=== PATIENT | male | born 1960 | race Caucasian/White ===

== ENCOUNTER 2017-04-08 05:35 | Inpatient (IN) | payer MEDICAID ==
[2017-04-08 05:47] VITALS: BMI 39.1
--- NOTE | 2017-04-08 06:07 | ED PDOC ---
Addendum entered and electronically signed by Malika Jane DO 04/08/17 08:27: Medical Decision Making Medical Decision Making: Dr. Hidalgo notified, asked to have admission to hospitalist team. Addendum entered and electronically signed by Malika Jane DO 04/08/17 07:44: Medical Decision Making Medical Decision Making: Patient endorsed to myself, still pending lab work before disposition. Lab work back, will place call to Dr. Hidalgo and Eric re: admission for TIA Original Note: Arrival/HPI - General Historian: Patient, Family - History of Present Illness Time/Duration: 4-6 hours Symptom Course: Unchanged Activities at Onset: Rest, Light Context: Home, Work <CRISTOBAL SHERIDAN - Last Filed: 04/08/17 06:53> <Malika Jane - Last Filed: 04/08/17 08:27> <Ky Demarco - Last Filed: 04/08/17 19:34> - General Chief Complaint: Weakness/Neurological Deficit Time Seen by Provider: 04/08/17 05:36 - History of Present Illness Narrative History of Present Illness (Text): 04/08/17 06:07 Mr. Will is a 56 year old male with a past medical history significant for NIDDM, HTN, and HLD who presents to the [facility] with a chief complaint of right sided weakness since last night at 2130. Patient is accompanied by his son, who helped to provide HPI information. Patient states that last night his right leg and arm felt "funny" but patient didn't think much of this and went to bed. Then this morning when he awoke around 0400 he noticed his right leg and right arm were numb and noticeably weaker than his left side. 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 Patients son then called the ambulance out of precaution. Patient denies fever, chills, weight loss, headache, changes in his vision/hearing, dizziness, seizure , dysphagia, chest pain, palpitations, SOB, cough, wheezing, abdominal pain, N/V , diarrhea, constipation, burning with urination, fecal/urinary incontinence, hematuria, neck pain, back pain, or any rash. (CRISTOBAL SHERIDAN) Past Medical History - Provider Review Nursing Documentation Reviewed: Yes - Travel History Have you recently traveled outside [place] w/in the past 3 mons?: No - Past History Past History: Non-Contributing - Infectious Disease Hx of Infectious Diseases: None - Tetanus Immunization Tetanus Immunization: Unknown - Cardiac Hx Cardiac Disorders: Yes Hx Hypertension: Yes - Pulmonary Hx Respiratory Disorders: No - Neurological Hx Neurological Disorder: No - HEENT Hx HEENT Disorder: No - Renal Hx Renal Disorder: No - Endocrine/Metabolic Hx Endocrine Disorders: Yes Hx Diabetes Mellitus Type 2: Yes - Hematological/Oncological Hx Blood Disorders: No - Integumentary Hx Dermatological Disorder: No - Musculoskeletal/Rheumatological Hx Musculoskeletal Disorders: No - Gastrointestinal Hx Gastrointestinal Disorders: Yes Hx Gastroesophageal Reflux: Yes - Genitourinary/Gynecological Hx Genitourinary Disorders: No - Psychiatric Hx Psychophysiologic Disorder: No Hx Substance Use: No <CRISTOBAL SHERIDAN - Last Filed: 04/08/17 06:53> Family/Social History - Physician Review Nursing Documentation Reviewed: Yes Family/Social History: Unknown Family HX Smoking Status: Former Smoker Hx Alcohol Use: Yes Hx Substance Use: No <CRISTOBAL SHERIDAN - Last Filed: 04/08/17 06:53> Allergies/Home Meds <CRISTOBAL SHERIDAN - Last Filed: 04/08/17 06:53> <Malika Jane - Last Filed: 04/08/17 08:27> <Ky Demarco - Last Filed: 04/08/17 19:34> Allergies/Adverse Reactions: Allergies No Known Allergies Allergy (Verified 08/28/15 18:18) Home Medications: Home Meds Medication Instructions Recorded Confirmed Cyanocobalamin (Vitamin B-12) 1,000 mcg PO DAILY 04/08/17 04/08/17 [Vitamin B-12] Glimepiride [amaRYL] 2 mg PO BID 04/08/17 04/08/17 GlipiZIDE [Glucotrol] 5 mg PO BID 04/08/17 04/08/17 Lisinopril/Hydrochlorothiazide 1 each PO DAILY 04/08/17 04/08/17 [Zestoretic 20-25 mg Tablet] MetFORMIN [glucOPHAGE] 1,000 mg PO BID 04/08/17 04/08/17 Omeprazole 20 mg PO DAILY 04/08/17 04/08/17 Review of Systems - Physician Review All systems were reviewed & negative as marked: Yes - Review of Systems Constitutional: Normal. absent: Weight Change, Fevers, Night Sweats Eyes: Normal. absent: Vision Changes ENT: Normal. absent: Hearing Changes Respiratory: Normal. absent: SOB, Cough, Wheezing Cardiovascular: Normal. absent: Chest Pain, Palpitations, Syncope Gastrointestinal: Normal, Other (denies fecal incontinence). absent: Abdominal Pain, Constipation, Diarrhea, Nausea, Vomiting Genitourinary Male: Normal, Other (denies urinary incontinence). absent: Dysuria, Hematuria Musculoskeletal: Normal. absent: Back Pain, Neck Pain Skin: Normal. absent: Rash Neurological: Focal Weakness, Gait Changes. absent: Normal, Headache, Dizziness , Speech Changes, Seizure Endocrine: Normal Hemo/Lymphatic: Normal Psychiatric: Normal <CRISTOBAL SHERIDAN - Last Filed: 04/08/17 06:53> Physical Exam Vital Signs Reviewed: Yes Temperature: Afebrile Blood Pressure: Normal Pulse: Regular Respiratory Rate: Normal Appearance: Positive for: Well-Appearing, Non-Toxic, Comfortable Pain Distress: None Mental Status: Positive for: Alert and Oriented X 3 - Systems Exam Head: Present: Atraumatic, Normocephalic Pupils: Present: PERRL Extroacular Muscles: Present: EOMI Conjunctiva: Present: Normal Mouth: Present: Moist Mucous Membranes Pharnyx: Present: Normal. No: ERYTHEMA, EXUDATE, TONSILS ENLARGED Nose (External): Present: Atraumatic Nose (Internal): Present: Normal Inspection. No: No Active Bleeding, Rhinorrhea Neck: Present: Normal Range of Motion, Trachea Midline. No: Meningeal Signs, MIDLINE TENDERNESS, Paraspinal Tenderness, JVD, Lymphadenopathy Respiratory/Chest: Present: Clear to Auscultation, Good Air Exchange. No: Respiratory Distress, Accessory Muscle Use, Wheezes, Decreased Breath Sounds, Rales, Retracting, Rhonchi, Tachypneic, Tender to Palpation Cardiovascular: Present: Regular Rate and Rhythm, Normal S1, S2, Peripheal Pulses Present. No: Murmurs, Irregular Rhythm, Tachycardic, Bradycardic Abdomen: Present: Normal Bowel Sounds. No: Tenderness, Distention, Peritoneal Signs Back: Present: Normal Inspection. No: CVA Tenderness, Midline Tenderness, Paraspinal Tenderness, Pain with Leg Raise Upper Extremity: Present: Normal Inspection, Normal ROM, NORMAL PULSES, Neurovascularly Intact, Capillary Refill < 2s. No: Cyanosis, Edema Lower Extremity: Present: Normal Inspection, NORMAL PULSES, Normal ROM, Neurovascularly Intact, Capillary Refill < 2 s. No: Edema, CALF TENDERNESS Neurological: Present: GCS=15, CN II-XII Intact, Speech Normal, Motor Func Grossly Intact, Normal Sensory Function Skin: Present: Warm, Dry, Normal Color. No: Rashes Lymphatic: No: Cervical Adenopathy Psychiatric: Present: Alert, Oriented x 3, Normal Insight, Normal Concentration <CRISTOBAL SHERIDAN - Last Filed: 04/08/17 06:53> Vital Signs Temp Pulse Resp BP Pulse Ox 04/08/17 18:00 90 04/08/17 16:54 98.3 F 89 18 128/87 04/08/17 16:16 98 F 99 H 18 131/82 96 04/08/17 14:00 86 12 131/82 98 04/08/17 13:13 89 18 128/87 96 04/08/17 12:44 98.2 F 04/08/17 10:38 78 18 122/89 100 04/08/17 07:47 75 17 130/44 L 99 04/08/17 05:45 98.3 F 85 16 123/78 100 Medical Decision Making - RAD Interpretation Staffing Operations Manager: Radiologist - EKG Interpretation Interpreted by ED Physician: Yes Type: 12 lead EKG - Transfer of Care Patient signed out to Myra Jane Pending Labs:: CBC, CMP, aPTT, PT/INR <CRISTOBAL SHERIDAN - Last Filed: 04/08/17 06:53> <Malika Jane - Last Filed: 04/08/17 08:27> <Ky Demarco - Last Filed: 04/08/17 19:34> ED Course and Treatment: 04/08/17 06:19 Impression: 56 year old male with a past medical history significant for NIDDM, HTN, and HLD who presents to the [facility] with a chief complaint of right sided weakness since he woke up this morning Plan: -CBC, CMP, PT/INR, aPTT -EKG -CT head w/o contrast -Reassess and disposition Prior Visits: All reports and results from previous visits reviewed. 02/2016: Patient was seen and evaluated for pneumonia. 04/08/17 06:54 Patient was signed out to Dr. Jane, including HPI, radiology results and EKG results. Awaiting labs for pending disposition. (CRISTOBAL SHERIDAN) pt seen and examined with resident agree with plan and management, case endorsed dr ortiz ([facility]) - Lab Interpretations Lab Results: 04/08/17 06:58 04/08/17 06:58 Lab Results 04/08/17 06:58: Sodium 141, Potassium 4.1, Chloride 101, Carbon Dioxide 24, Anion Gap 20, BUN 11, Creatinine 0.8, Est GFR ( Amer) > 60, Est GFR (Non- Af Amer) > 60, Random Glucose 202 H, Calcium 9.7, Total Bilirubin 0.5, AST 64 H , ALT 71 H, Alkaline Phosphatase 91, Total Protein 7.8, Albumin 4.6, Globulin 3.2, Albumin/Globulin Ratio 1.4 04/08/17 06:58: PT 11.1, INR 1.03, APTT 26.9 04/08/17 06:58: WBC 6.2 D, RBC 4.67, Hgb 12.9 L, Hct 39.4 L, MCV 84.4, MCH 27.6 , MCHC 32.7, RDW 13.3, Plt Count 183, MPV 13.2 H, Gran % 57.4, Lymph % (Auto) 32.0, [place] % (Auto) 6.1 H, Eos % (Auto) 4.2, Baso % (Auto) 0.3, Gran # 3.56, Lymph # 2.0, [place] # 0.4, Eos # 0.3, Baso # 0.02 - RAD Interpretation Radiology Orders: 04/08/17 06:05 HEAD W/O CONTRAST [CT] Stat Negative for acute hemorrhage or infarct (CRISTOBAL SHERIDAN) - EKG Interpretation EKG Interpretation (Text): 04/08/17 06:36 NSR at 76, normal intervals, no ST-T segment changes, no T wave abnormalities ( CRISTOBAL SHERIDAN) - Medication Orders Current Medication Orders: Aspirin (Aspirin Chewable) 81 mg PO DAILY [facility] Last Admin: 04/08/17 10:20 Dose: Atorvastatin Calcium (Lipitor) 20 mg PO DIN [facility] Last Admin: 04/08/17 17:28 Dose: 20 mg Heparin Sodium (Porcine) (Heparin) 5,000 units SC Q12 [facility] PRN Reason: Protocol Last Admin: 04/08/17 10:32 Dose: 5,000 units Subcutaneous Administrations Document 04/08/17 10:32 MR (Rec: 04/08/17 10:33 MR [id number]) Injection Site MAR Injection Site Left Abdomen Charges for Administration # of Subcutaneous Administrations 1 Insulin Human Regular (Humulin R Med) 0 units SC ACHS YUE PRN Reason: Protocol Last Admin: 04/08/17 17:27 Dose: 3 units MAR Blood Glucose Document 04/08/17 17:27 LMN (Rec: 04/08/17 17:28 LMN [id number]) Blood Glucose Finger Stick Blood Glucose (70-120) 240 Subcutaneous Administrations Document 04/08/17 17:27 LMN (Rec: 04/08/17 17:28 LMN [id number]) Injection Site MAR Injection Site Left Abdomen Charges for Administration # of Subcutaneous Administrations 1 Pantoprazole Sodium (Protonix Ec Tab) 40 mg PO 0600 YUE Discontinued Medications Aspirin (Aspirin Chewable) 81 mg PO STAT STA Stop: 04/08/17 08:15 Last Admin: 04/08/17 09:17 Dose: 81 mg Pneumococcal Polyvalent Vaccine (Pneumovax 23 Vaccine) 0.5 ml IM .ONCE ONE Stop: 04/08/17 17:09 NIHSS Scale (Points) Time Performed: 06:22 - How Severe is the Stoke Baseline Level of Consciousness: 0=Alert LOC to Questions: 0=Both comments correct LOC to commands: 0=Obeys both correctly Best Gaze: 0=Normal Visual: 0=No visual loss Facial: 0=Normal Motor Arm - Left: 0=No drift Motor Arm - Right: 0=No drift Motor Leg - Left: 0=No drift Motor Leg - Right: 0=No drift Limb Ataxia: 0=Absent Sensory: 0=Normal Best Language: 0=No aphasia Dysarthia: 0=Normal articulation Extinction & Inattention (Neglect): 0=Normal, no object Score: 0 Risk Level: No Stroke Risk <CRISTOBAL SHERIDAN - Last Filed: 04/08/17 06:53> rTPA Inclusion/Exclusion - Refusal of Treatment Patient Refused Treatment: No - Inclusion Criteria for Altepase Patient is 18 years or Older: Yes The Clinical Diagnosis of Ischemic Stroke That is Causing a Potentially Disabling Neurological Deficit: No Time of Onset is Well Established to be Less Than 270 Minute Before Treatment Would Begin: No Risk/Benefit Discussed With Patient/Family Member Present: No <CRISTOBAL SHERIDAN - Last Filed: 04/08/17 06:53> - Refusal of Treatment Patient Refused Treatment: No - Inclusion Criteria for Altepase Patient is 18 years or Older: Yes The Clinical Diagnosis of Ischemic Stroke That is Causing a Potentially Disabling Neurological Deficit: No Time of Onset is Well Established to be Less Than 270 Minute Before Treatment Would Begin: No Risk/Benefit Discussed With Patient/Family Member Present: Yes - Exclusion Criteria for Altepase Uncontrolled Hypertension at Time of Treatment (Systolic BP above 185 or Diastolic BP above 110 mmHg): No Active Internal Bleeding: No Known Bleeding Diathesis Including but Not Limited to: Platelets Below 100,000/ mm,PTT Above 40 sec After Heparin Use, Current Use of Oral Anitcoagulant With INR Greater Than 1.7 or PT Greater Than 15 secs: No Evidence of an Intracranial Hemorrhage: No Evidence of Major Acute Infarct With Signs Greater Than 1/3 MCA Territory: No Suspicion of Subarachnoid Hemorrhage on Pretreatment Evaluation Even if CT Head Negative For Hemorrhage: No - Warning to TPA With Conditions Following Conditions Weighed Against Anticipated Benefit: Yes Condition: Stroke Serevity Too Mild <Ky Demarco - Last Filed: 04/08/17 19:34> - PA / GROUP WORK PROGRAM DIRECTOR / Resident Statement KARINE has reviewed & agrees with the documentation as recorded. KARINE has examined the patient and agrees with the treatment plan. <Ky Demarco - Last Filed: 04/08/17 19:34> Disposition/Present on Arrival - Present on Arrival Any Indicators Present on Arrival: No History of DVT/PE: No History of Uncontrolled Diabetes: No Urinary Catheter: No History of Decub. Ulcer: No History Surgical Site Infection Following: None - Disposition Have Diagnosis and Disposition been Completed?: No Disposition Time: 07:00 <CRISTOBAL SHERIDAN - Last Filed: 04/08/17 06:53> <Malika Jane - Last Filed: 04/08/17 08:27> - Present on Arrival Any Indicators Present on Arrival: No - Disposition Have Diagnosis and Disposition been Completed?: Yes <Ky Demarco - Last Filed: 04/08/17 19:34> - Disposition Diagnosis: TIA (transient ischemic attack), CVA (cerebral vascular accident) Disposition: HOSPITALIZED Condition: STABLE
--- NOTE | 2017-04-08 06:38 | CT ---
EXAM: CT Head Without Intravenous Contrast CLINICAL HISTORY: 56 years old, male; Signs and symptoms; Weakness, extremity; Additional info: Right sided weakness TECHNIQUE: Axial computed tomography images of the head/brain without intravenous contrast. All CT scans at this facility use one or more dose reduction techniques, viz.: automated exposure control; ma/kV adjustment per patient size (including targeted exams where dose is matched to indication; i.e. head); or iterative reconstruction technique. COMPARISON: No relevant prior studies available. FINDINGS: Brain: No intracranial hemorrhage. No mass. No definite edema. Ventricles: No hydrocephalus. Bones/joints: No acute fracture. Soft tissues: Unremarkable. Vasculature: Mild atherosclerotic disease of intracranial arteries. Sinuses: [id number] focal mucosal thickening of maxillary, LEFT sphenoid sinuses. Mastoid air cells: No mastoid effusion. Orbits: Unremarkable as visualized. IMPRESSION: 1. No definite territorial infarction. Acute infarction may be CT occult within first 24 hours. If focal deficit persists, consider followup CT or MRI for further evaluation. 2. Incidental/non-acute findings are described above.
[2017-04-08 07:09] LABS: BASO # 0.02 K/mm3 (0.0-2.0); BASO % 0.3 % (0.0-3.0); EOS # 0.3 (0.0-0.7); EOS % 4.2 % (1.5-5.0); GRAN # 3.56 (1.4-6.5); GRAN % 57.4 % (50.0-68.0); HEMATOCRIT 39.4 % (42.0-52.0); MEAN CELL VOLUME 84.4 fl (80.0-105.0); MEAN CORPUSCULAR HEMOGLOBIN 27.6 pg (25.0-35.0); MEAN CORPUSCULAR HGB CONC 32.7 g/dl (31.0-37.0); MEAN PLATELET VOLUME 13.2 fl (7.0-11.0); MONO # 0.4 (0.1-0.6); MONO % 6.1 % (1.0-6.0); RED CELL DISTRIBUTION WIDTH 13.3 % (11.5-14.5); WHITE BLOOD COUNT 6.2 10^3/ul (4.5-11.0)
[2017-04-08 07:19] LABS: ALB/GLOB RATIO 1.4 (1.1-1.8); ALKALINE PHOSPHATASE 91 U/L (38-126); ALT/SGPT 71 U/L (7-56); AST/SGOT 64 U/L (17-59); BILIRUBIN,TOTAL 0.5 mg/dL (0.2-1.3); BLOOD UREA NITROGEN 11 mg/dL (7-21); CALCIUM 9.7 mg/dL (8.4-10.5); CARBON DIOXIDE 24 mmol/L (21-33); CHLORIDE 101 mmol/L (98-107); GFR AFRICAN-AMERICAN > 60; GLUCOSE,RANDOM 202 mg/dL (70-110); POTASSIUM 4.1 mmol/L (3.6-5.0); SODIUM 141 mmol/L (132-148); TOTAL PROTEIN 7.8 g/dL (5.8-8.3)
[2017-04-08 07:23] LABS: INR 1.03 (0.93-1.08); PARTIAL THROMBOPLASTIN TIME 26.9 Seconds (23.7-30.8)
[2017-04-08 09:31] LABS: CHOLESTEROL 208 mg/dL (130-200)
--- NOTE | 2017-04-08 09:47 | ED PDOC ---
Physical Exam Vital Signs Reviewed: Yes Vital Signs Temp Pulse Resp BP Pulse Ox 04/08/17 07:47 75 17 130/44 L 99 04/08/17 05:45 98.3 F 85 16 123/78 100 Temperature: Afebrile Appearance: Positive for: Well-Appearing, Non-Toxic, Comfortable Medical Decision Making ED Course and Treatment: 04/08/17 09:47 Patient endorsed to me from previous shift. Patient reports onset of right sided weakness in leg, then arm approximately 930 pm last night. On current exam , very mild right lower extremity pronator drift. He is able to ambulate although he feels his right leg is "heavy". Patient has no lower back pain or neck pain. No trauma. No visual symptoms. Not a tpa candidate as symptoms mild and over 6 hours since presentation. I discussed his case with his PMD, requests admission to hospitalist with neuro consultation. Will consult Dr. Reyes, neuro. Aspirin ordered. - Lab Interpretations Lab Results: 04/08/17 06:58 04/08/17 06:58 Lab Results 04/08/17 06:58: Sodium 141, Potassium 4.1, Chloride 101, Carbon Dioxide 24, Anion Gap 20, BUN 11, Creatinine 0.8, Est GFR ( Amer) > 60, Est GFR (Non- Af Amer) > 60, Random Glucose 202 H, Calcium 9.7, Total Bilirubin 0.5, AST 64 H , ALT 71 H, Alkaline Phosphatase 91, Total Protein 7.8, Albumin 4.6, Globulin 3.2, Albumin/Globulin Ratio 1.4 04/08/17 06:58: PT 11.1, INR 1.03, APTT 26.9 04/08/17 06:58: WBC 6.2 D, RBC 4.67, Hgb 12.9 L, Hct 39.4 L, MCV 84.4, MCH 27.6 , MCHC 32.7, RDW 13.3, Plt Count 183, MPV 13.2 H, Gran % 57.4, Lymph % (Auto) 32.0, [place] % (Auto) 6.1 H, Eos % (Auto) 4.2, Baso % (Auto) 0.3, Gran # 3.56, Lymph # 2.0, [place] # 0.4, Eos # 0.3, Baso # 0.02 - RAD Interpretation Radiology Orders: 04/08/17 06:05 HEAD W/O CONTRAST [CT] Stat - Medication Orders Current Medication Orders: Aspirin (Aspirin Chewable) 81 mg PO DAILY [facility] Heparin Sodium (Porcine) (Heparin) 5,000 units SC Q12 YUE PRN Reason: Protocol Insulin Human Regular (Humulin R Med) 0 units SC ACHS YUE PRN Reason: Protocol Pantoprazole Sodium (Protonix Ec Tab) 40 mg PO 0600 YUE Discontinued Medications Aspirin (Aspirin Chewable) 81 mg PO STAT STA Stop: 04/08/17 08:15 Last Admin: 04/08/17 09:17 Dose: 81 mg Disposition/Present on Arrival - Present on Arrival Any Indicators Present on Arrival: No History of DVT/PE: No History of Uncontrolled Diabetes: No Urinary Catheter: No History of Decub. Ulcer: No History Surgical Site Infection Following: None - Disposition Have Diagnosis and Disposition been Completed?: Yes Diagnosis: TIA (transient ischemic attack), CVA (cerebral vascular accident) Disposition: HOSPITALIZED Disposition Time: 07:30 Patient Plan: Admission, Telemetry Patient Problems: Current Active Problems Problem Status Onset TIA (transient ischemic attack) Acute Condition: STABLE NIHSS Scale ([place]) Time Performed: 07:30 - How Severe is the [place]oke Baseline Level of Consciousness: 0=Alert LOC to Questions: 0=Both comments correct LOC to commands: 0=Obeys both correctly Best Gaze: 0=Normal Visual: 0=No visual loss Facial: 0=Normal Motor Arm - Left: 0=No drift Motor Arm - Right: 0=No drift Motor Leg - Left: 0=No drift Motor Leg - Right: 1=Drift before 5 sec Limb Ataxia: 0=Absent Sensory: 0=Normal Best Language: 0=No aphasia Dysarthia: 0=Normal articulation
--- NOTE | 2017-04-08 10:12 | CARD ---
APPROVED REPORT EKG Measurement Heart [id number] <Conclusion> Normal sinus rhythm Normal ECG
[2017-04-08] MEDS: Insulin Reg-MEDIUM-Coverage SC SCH ×3 (12:32→21:24)
--- NOTE | 2017-04-08 13:00 | CP.PCM.HP ---
<Bereket Daly - Last Filed: 04/08/17 13:08> History of Present Illness - History of Present Illness History of Present Illness: 56 y/o M with PMH of HTN, DM, and HLD presents to the hospital for 12 hour hx of right sided numbness and weakness. Pt states he was watching tv at home with his family when he noticed a funny sensation on his right side. Pt went to sleep and awoke in the middle of the night, noticing his symptoms were worse. At this time, he informed his son and came to the hospital. In the ED, he noticed improvement of symptoms. Pt did not take any medications at home for his symptoms. Pt states there are no aggravating or alleviating factors. Pt states he has been compliant with his medications at home. Denies CP, SOB, N/V/D , blurry vision, dysuria, easy bleeding or bruising. PMD: Dr. Arvizu PSH: None FMH: Oral Cancer Social Hx: Former smoker, quit 15 years ago. Social drinker, denies illicit drugs. Allergies: NKDA Medications: Reviewed, as per MAR Present on Admission - Present on Admission Any Indicators Present on Admission: No Review of Systems - Review of Systems Review of Systems: 12 point ROS as per HPI, otherwise negative. Past Patient History - Infectious Disease Hx of Infectious Diseases: None - Tetanus Immunizations Tetanus Immunization: Unknown - Past Social History Smoking Status: Former Smoker - CARDIAC Hx Cardiac Disorders: Yes Hx Hypertension: Yes - PULMONARY Hx Respiratory Disorders: No - NEUROLOGICAL Hx Neurological Disorder: No - HEENT Hx HEENT Problems: No - RENAL Hx Chronic Kidney Disease: No - ENDOCRINE/METABOLIC Hx Endocrine Disorders: Yes Hx Diabetes Mellitus Type 2: Yes - HEMATOLOGICAL/ONCOLOGICAL Hx Blood Disorders: No - INTEGUMENTARY Hx Dermatological Problems: No - MUSCULOSKELETAL/RHEUMATOLOGICAL Hx Musculoskeletal Disorders: No - GASTROINTESTINAL Hx Gastrointestinal Disorders: Yes Hx Gastroesophageal Reflux: Yes - GENITOURINARY/GYNECOLOGICAL Hx Genitourinary Disorders: No - PSYCHIATRIC Hx Psychophysiologic Disorder: No Hx Substance Use: No - SURGICAL HISTORY Hx Surgeries: No Meds Allergies/Adverse Reactions: Allergies Allergy/AdvReac Type Severity Reaction Status Date / Time No Known Allergies Allergy Verified 08/28/15 18:18 Physical Exam - Constitutional Appears: Non-toxic, No Acute Distress - Head Exam Head Exam: ATRAUMATIC, NORMAL INSPECTION, NORMOCEPHALIC - Eye Exam Eye Exam: EOMI, Normal appearance - ENT Exam ENT Exam: Mucous Membranes Moist, Normal Exam - Respiratory Exam Respiratory Exam: Clear to Auscultation Bilateral, NORMAL BREATHING PATTERN. absent: Rales, Rhonchi, Wheezes - Cardiovascular Exam Cardiovascular Exam: RRR, +S1, +S2 - GI/Abdominal Exam GI & Abdominal Exam: Normal Bowel Sounds, Soft. absent: Tenderness - Extremities Exam Extremities exam: Positive for: normal inspection. Negative for: calf tenderness, pedal edema - Neurological Exam Neurological exam: Alert, CN II-XII Intact, Oriented x3 Additional comments: 4/5 muscle strength on the right upper and lower ext 5/5 muscle strength on the left upper and lower ext Sensation intact - Psychiatric Exam Psychiatric exam: Normal Affect, Normal Mood - Skin Skin Exam: Intact, Normal Color, Warm Results - Vital Signs Recent Vital Signs: Last Vital Signs Temp 98.3 F 04/08/17 05:45 Pulse 78 04/08/17 10:38 Resp 18 04/08/17 10:38 BP 122/89 04/08/17 10:38 Pulse Ox 100 04/08/17 10:38 - Labs Result Diagrams: 04/08/17 06:58 04/08/17 06:58 Labs: Laboratory Results - last 24 hr 04/08/17 04/08/17 04/08/17 08:36 09:05 10:37 POC Glucose (mg/dL) 181 H Hemoglobin A1c 8.9 H Triglycerides 201 H Cholesterol 208 H LDL Cholesterol Direct 163 H HDL Cholesterol 34 04/08/17 12:30 POC Glucose (mg/dL) 135 H Hemoglobin A1c Triglycerides Cholesterol LDL Cholesterol Direct HDL Cholesterol Assessment & Plan - Assessment and Plan (Free Text) Plan: 56 y/o M with PMH of HTN, DM, and HLD presents with TIA. Head CT negative for any acute findings at this time. Lipid panel demonstrates elevated LDL and pt will be placed on a statin, will trend LFTs. Pt will be seen by Neurology and have carotid dopplers ordered. 1. TIA Head CT negative Atorvastatin 20 mg daily ASA 81 mg daily Will consider Brain MRI, will discuss with Neurology Neuro checks q4h Neurology consulted, Dr. Reyes 2. HTN BP stable Will hold BP meds 3. DM Hold DM medication HgA1c 8.9 ISS 4. HLD LDL elevated Atorvastatin started 5. PPX Heparin Protonix Bhagwachristine, PGY-2 <Lexus Sorensen - Last Filed: 04/08/17 14:20> Results - Vital Signs Recent Vital Signs: Last Vital Signs Temp 98.2 F 04/08/17 12:44 Pulse 89 04/08/17 13:13 Resp 18 04/08/17 13:13 BP 128/87 04/08/17 13:13 Pulse Ox 96 04/08/17 13:13 - Labs Result Diagrams: 04/08/17 06:58 04/08/17 06:58 Labs: Laboratory Results - last 24 hr 04/08/17 04/08/17 04/08/17 08:36 09:05 10:37 POC Glucose (mg/dL) 181 H Hemoglobin A1c 8.9 H Triglycerides 201 H Cholesterol 208 H LDL Cholesterol Direct 163 H HDL Cholesterol 34 04/08/17 12:30 POC Glucose (mg/dL) 135 H Hemoglobin A1c Triglycerides Cholesterol LDL Cholesterol Direct HDL Cholesterol Attending/Attestation - Attestation I have personally seen and examined this patient.: Yes I have fully participated in the care of the patient.: Yes I have reviewed all pertinent clinical information: Yes Notes (Text): 04/08/17 14:15 56 year old male with past medical history of hypertension, diabetes and dyslipidemia who presents with right sided weakness being admitted to rule out TIA/CVA. CT head was negative for acute findings. Carotid dopplers and MRI brain is ordered. Neurology evaluation and PT evaluation were requested. Continue with aspirin and statin. Monitor LFTs closely which are mildly elevated. He was counselled on alcohol abstinence. Lexus Sorensen MD Hospitalist.
--- NOTE | 2017-04-08 14:16 | CP.PCM.CON ---
Addendum entered and electronically signed by Lovely Angulo DO 04/08/17 14: 55: MRI brain found to be positive for CVA in L posterior jorgensen radiata. Recommend ASA, Lipitor, and physical therapy. Recommend better control of underlying risk factors such as diabetes and hyperlipidemia. Original Note: <Loevly Angulo - Last Filed: 04/08/17 14:12> History of Present Illness - History of Present Illness History of Present Illness: Neurology Consult Note for Antoine Esposito PGY2 Reason for consult: R Leg numbness This is a 56Y M with PMH HTN, DM and HLD who came to ED numbness of R leg for 12hrs. Patient reports he was at home watching tv when he felt numbness/ tingling in his R lower leg. He reports he was sitting at the time and not specifically leaning on it. He reports that his symptoms did not resolve when he went to be so he decided to come to the ED. He has never had an episode like this before. He denies having vision changes, slurred speech, facial droop, CP, SOB, n/v/d, or weakness. In the ED, patient reports his numbness/tingling had resolved on its own. PMH: HTN, HLD, DM PSH: Denies Home meds: As per MAR All: NKDA SH: Former smoker, denies drug use. Drinks one shot of whiskey once per week FH: Dad- oral cancer Review of Systems - Review of Systems All systems: reviewed and no additional remarkable complaints except Review of Systems: R leg numbness Past Patient History - Infectious Disease Hx of Infectious Diseases: None - Tetanus Immunizations Tetanus Immunization: Unknown - Past Social History Smoking Status: Former Smoker - CARDIAC Hx Cardiac Disorders: Yes Hx Hypertension: Yes - PULMONARY Hx Respiratory Disorders: No - NEUROLOGICAL Hx Neurological Disorder: No - HEENT Hx HEENT Problems: No - RENAL Hx Chronic Kidney Disease: No - ENDOCRINE/METABOLIC Hx Endocrine Disorders: Yes Hx Diabetes Mellitus Type 2: Yes - HEMATOLOGICAL/ONCOLOGICAL Hx Blood Disorders: No - INTEGUMENTARY Hx Dermatological Problems: No - MUSCULOSKELETAL/RHEUMATOLOGICAL Hx Musculoskeletal Disorders: No - GASTROINTESTINAL Hx Gastrointestinal Disorders: Yes Hx Gastroesophageal Reflux: Yes - GENITOURINARY/GYNECOLOGICAL Hx Genitourinary Disorders: No - PSYCHIATRIC Hx Psychophysiologic Disorder: No Hx Substance Use: No - SURGICAL HISTORY Hx Surgeries: No Meds Allergies/Adverse Reactions: Allergies Allergy/AdvReac Type Severity Reaction Status Date / Time No Known Allergies Allergy Verified 08/28/15 18:18 - Medications Medications: Current Medications Aspirin (Aspirin Chewable) 81 mg PO DAILY [facility] Last Admin: 04/08/17 10:20 Dose: Not Given Atorvastatin Calcium (Lipitor) 20 mg PO DIN [facility] Heparin Sodium (Porcine) (Heparin) 5,000 units SC Q12 [facility] PRN Reason: Protocol Last Admin: 04/08/17 10:32 Dose: 5,000 units Insulin Human Regular (Humulin R Med) 0 units SC ACHS [facility] PRN Reason: Protocol Last Admin: 04/08/17 12:32 Dose: Not Given Pantoprazole Sodium (Protonix Ec Tab) 40 mg PO 0600 [facility] Physical Exam - Constitutional Appears: No Acute Distress - Head Exam Head Exam: ATRAUMATIC, NORMAL INSPECTION, NORMOCEPHALIC - Eye Exam Eye Exam: Normal appearance, PERRL Pupil Exam: NORMAL ACCOMODATION - ENT Exam ENT Exam: Mucous Membranes Moist - Respiratory Exam Respiratory Exam: Clear to Auscultation Bilateral, NORMAL BREATHING PATTERN. absent: Rales, Rhonchi, Wheezes - Cardiovascular Exam Cardiovascular Exam: REGULAR RHYTHM, +S1, +S2. absent: Gallop, Rubs, Systolic Murmur - GI/Abdominal Exam GI & Abdominal Exam: Normal Bowel Sounds, Soft. absent: Rebound, Rigid, Tenderness - Extremities Exam Extremities exam: Positive for: normal inspection. Negative for: calf tenderness, pedal edema - Neurological Exam Neurological exam: Alert, CN II-XII Intact, Oriented x3 Additional comments: no focal neurological deficits. 5/5 strength in all extremities - Psychiatric Exam Psychiatric exam: Normal Affect, Normal Mood - Skin Skin Exam: Dry, Intact, Normal Color, Warm Results - Vital Signs Recent Vital Signs: Last Vital Signs Temp 98.2 F 04/08/17 12:44 Pulse 89 04/08/17 13:13 Resp 18 04/08/17 13:13 BP 128/87 04/08/17 13:13 Pulse Ox 96 04/08/17 13:13 - Labs Result Diagrams: 04/08/17 06:58 04/08/17 06:58 Labs: Laboratory Results - last 24 hr 04/08/17 04/08/17 04/08/17 08:36 09:05 10:37 POC Glucose (mg/dL) 181 H Hemoglobin A1c 8.9 H Triglycerides 201 H Cholesterol 208 H LDL Cholesterol Direct 163 H HDL Cholesterol 34 04/08/17 12:30 POC Glucose (mg/dL) 135 H Hemoglobin A1c Triglycerides Cholesterol LDL Cholesterol Direct HDL Cholesterol Assessment & Plan - Assessment and Plan (Free Text) Assessment: This is a 56Y M with PMH HTN, DM and HLD who came to ED numbness of R leg for 12hrs. Head CT noted to be negative. Leg numbness can be TIA versus peripheral neuropathy from diabetes. TIA unlikely at this time. Plan: - Carotid dopplers ordered - MRI brain ordered - HgbA1c: 8.9 - recommend diabetic education - If brain MRI negative- recommend outpatient EMG if numbness/tingling continues - Recommend ASA and Lipitor for uncontrolled cholesterol No further neurological work up needed. Thank you for this consultation. Please re-consult if needed. Case seen, discussed and reviewed with Dr. Reyes. Antoine Angulo PGY2 - Date & Time Date: 04/08/17 Time: 14:19 <Tc Reyes - Last Filed: 04/08/17 16:12> Meds - Medications Medications: Current Medications Aspirin (Aspirin Chewable) 81 mg PO DAILY [facility] Last Admin: 04/08/17 10:20 Dose: Not Given Atorvastatin Calcium (Lipitor) 20 mg PO DIN [facility] Heparin Sodium (Porcine) (Heparin) 5,000 units SC Q12 [facility] PRN Reason: Protocol Last Admin: 04/08/17 10:32 Dose: 5,000 units Insulin Human Regular (Humulin R Med) 0 units SC ACHS [facility] PRN Reason: Protocol Last Admin: 04/08/17 12:32 Dose: Not Given Pantoprazole Sodium (Protonix Ec Tab) 40 mg PO 0600 [facility] Results - Vital Signs Recent Vital Signs: Last Vital Signs Temp 98.2 F 04/08/17 12:44 Pulse 86 04/08/17 14:00 Resp 12 04/08/17 14:00 BP 131/82 04/08/17 14:00 Pulse Ox 98 04/08/17 14:00 - Labs Result Diagrams: 04/08/17 06:58 04/08/17 06:58 Labs: Laboratory Results - last 24 hr 04/08/17 04/08/17 04/08/17 08:36 09:05 10:37 POC Glucose (mg/dL) 181 H Hemoglobin A1c 8.9 H Triglycerides 201 H Cholesterol 208 H LDL Cholesterol Direct 163 H HDL Cholesterol 34 04/08/17 12:30 POC Glucose (mg/dL) 135 H Hemoglobin A1c Triglycerides Cholesterol LDL Cholesterol Direct HDL Cholesterol Attending/Attestation - Attestation I have personally seen and examined this patient.: Yes I have fully participated in the care of the patient.: Yes I have reviewed all pertinent clinical information: Yes
--- NOTE | 2017-04-08 14:46 | MRI ---
PROCEDURE: MRI BRAIN WITHOUT CONTRAST HISTORY: tia COMPARISON: None. TECHNIQUE: Multiplanar, multisequence MR images of the brain were obtained without intravenous contrast enhancement. FINDINGS: HEMORRHAGE: None DWI: There is an acute infarct in the left posterior jorgensen radiata just above the level of the thalamus and internal capsule. This measures 6 x 13 mm and is seen on image 15 series 3. BRAIN PARENCHYMA: No mass effect or edema. No atrophy or chronic microvascular ischemic changes. VENTRICLES: Unremarkable. No hydrocephalus. CRANIUM: Unremarkable. ORBITS: Grossly unremarkable. PARANASAL SINUSES/MASTOIDS: Clear VASCULAR SYSTEM: Skull base flow voids intact. OTHER FINDINGS: None. IMPRESSION: There is an acute infarct in the left posterior jorgensen radiata just above the level of the thalamus and internal capsule. This measures 6 x 13 mm .
--- NOTE | 2017-04-08 16:30 | US ---
PROCEDURE: Bilateral carotid artery duplex ultrasound HISTORY: Carotid stenosis TIA PHYSICIAN(S): Mathew Jernigan MD. TECHNIQUE: Duplex sonography and color-flow Doppler were used to evaluate the carotid bifurcations and limited segments of the vertebral arteries bilaterally. FINDINGS: There is mild smooth heterogeneous plaque noted at the carotid bifurcations bilaterally. The peak systolic velocity in the proximal right internal carotid artery is 95 cm/sec. This corresponds to a 20 to 39% proximal right ICA stenosis. Normal systolic velocities are noted in the proximal right external carotid artery. There is antegrade flow in the right vertebral artery. The peak systolic velocity in the proximal left internal carotid artery is 78 cm/sec. This corresponds to a 20 to 39% proximal left ICA stenosis. Normal systolic velocities are noted in the proximal left external carotid artery. There is antegrade flow in the left vertebral artery. IMPRESSION: 1. Bilateral 20-39% proximal ICA stenoses. 2. Antegrade flow in both vertebral arteries.
[2017-04-08] MEDS ORDERED: Pneumococcal 23-Valent Vaccine IM ONE (17:08)
[2017-04-09 06:00] VITALS: RESP 20; O2SAT 99
[2017-04-09] MEDS ORDERED: Pantoprazole 40 mg EC Tab PO SCH (06:00)
[2017-04-09 06:20] LABS: BASO # 0.02 K/mm3 (0.0-2.0); BASO % 0.3 % (0.0-3.0); EOS # 0.3 (0.0-0.7); EOS % 4.5 % (1.5-5.0); GRAN # 3.31 (1.4-6.5); GRAN % 51.3 % (50.0-68.0); HEMATOCRIT 39.4 % (42.0-52.0); LYMPH # 2.4 (1.2-3.4); LYMPH % 36.8 % (22.0-35.0); MEAN CELL VOLUME 84.5 fl (80.0-105.0); MEAN PLATELET VOLUME 13.7 fl (7.0-11.0); MONO # 0.5 (0.1-0.6); MONO % 7.1 % (1.0-6.0); RED CELL DISTRIBUTION WIDTH 13.4 % (11.5-14.5); WHITE BLOOD COUNT 6.5 10^3/ul (4.5-11.0)
[2017-04-09 06:50] LABS: ALB/GLOB RATIO 1.4 (1.1-1.8); ALKALINE PHOSPHATASE 74 U/L (38-126); ALT/SGPT 69 U/L (7-56); AST/SGOT 59 U/L (17-59); BILIRUBIN,TOTAL 0.4 mg/dL (0.2-1.3); BLOOD UREA NITROGEN 14 mg/dL (7-21); CALCIUM 9.1 mg/dL (8.4-10.5); CARBON DIOXIDE 25 mmol/L (21-33); CHLORIDE 103 mmol/L (98-107); GFR AFRICAN-AMERICAN > 60; GLUCOSE,RANDOM 174 mg/dL (70-110); POTASSIUM 3.9 mmol/L (3.6-5.0); SODIUM 140 mmol/L (132-148); TOTAL PROTEIN 6.9 g/dL (5.8-8.3)
[2017-04-09] MEDS: Insulin Reg-MEDIUM-Coverage SC SCH ×2 (08:20→12:56)
--- NOTE | 2017-04-09 10:52 | CP.PCM.PN ---
<Lovely Angulo - Last Filed: 04/09/17 10:48> Subjective - Date & Time of Evaluation Date of Evaluation: 04/09/17 Time of Evaluation: 10:49 - Subjective Subjective: Neurology Progress Note for Antoine Esposito PGY2 Patient seen and examined at bedside. As per nursing, there were no acute overnight events. Patient feels well today. He reports he would like to go home. He states his R leg weakness has resolved. He denies having CP, SOB, vision changes, n/v/d, numbness/tingling, fever or chills. Objective - Vital Signs/Intake and Output Vital Signs (last 24 hours): Temp Pulse Resp BP Pulse Ox 98.5 F 73 20 128/82 99 04/09/17 05:57 04/09/17 05:57 04/09/17 05:57 04/09/17 05:57 04/09/17 05:57 Intake and Output: 04/09/17 04/09/17 06:59 18:59 Intake Total 120 Balance 120 - Medications Medications: Current Medications Aspirin (Aspirin Chewable) 81 mg PO DAILY [facility] Last Admin: 04/09/17 09:41 Dose: 81 mg Atorvastatin Calcium (Lipitor) 80 mg PO DIN [facility] Heparin Sodium (Porcine) (Heparin) 5,000 units SC Q12 [facility] PRN Reason: Protocol Last Admin: 04/09/17 09:41 Dose: 5,000 units Insulin Human Regular (Humulin R Med) 0 units SC ACHS [facility] PRN Reason: Protocol Last Admin: 04/09/17 08:20 Dose: 1 units Pantoprazole Sodium (Protonix Ec Tab) 40 mg PO 0600 [facility] Last Admin: 04/09/17 05:27 Dose: 40 mg - Labs Labs: 04/09/17 05:30 04/09/17 05:30 PT 11.1 Seconds (9.9-11.8) 04/08/17 06:58 INR 1.03 (0.93-1.08) 04/08/17 06:58 APTT 26.9 Seconds (23.7-30.8) 04/08/17 06:58 - Constitutional Appears: No Acute Distress - Head Exam Head Exam: ATRAUMATIC, NORMAL INSPECTION, NORMOCEPHALIC - Eye Exam Eye Exam: Normal appearance, PERRL Pupil Exam: NORMAL ACCOMODATION, PERRL - ENT Exam ENT Exam: Mucous Membranes Moist - Neck Exam Neck Exam: Full ROM, Normal Inspection - Respiratory Exam Respiratory Exam: Clear to Ausculation Bilateral, NORMAL BREATHING PATTERN. absent: Rales, Rhonchi, Wheezes - Cardiovascular Exam Cardiovascular Exam: REGULAR RHYTHM, +S1, +S2. absent: Gallop, Rubs, Murmur - GI/Abdominal Exam GI & Abdominal Exam: Soft, Normal Bowel Sounds. absent: Rigid, Tenderness, Mass , Rebound - Extremities Exam Extremities Exam: Normal Inspection. absent: Calf Tenderness, Pedal Edema - Neurological Exam Neurological Exam: Alert, Awake, CN II-XII Intact, Oriented x3 Neuro motor strength exam: Left Upper Extremity: 5, Right Upper Extremity: 5, Left Lower Extremity: 5, Right Lower Extremity: 5 - Psychiatric Exam Psychiatric exam: Normal Affect, Normal Mood - Skin Skin Exam: Dry, Intact, Normal Color, Warm Assessment and Plan - Assessment and Plan (Free Text) Assessment: This is a 56Y M with PMH HTN, DM and HLD who came to ED numbness of R leg for 12hrs. Head CT noted to be negative. MRI brain found to be positive for CVA in L posterior jorgensen radiata. Carotid dopplers showed 20-39% stenosis bilaterally. CVA is secondary to uncontrolled risk factors such as diabetes and dyslipidemia. Plan: - ASA 81mg daily - Lipitor 80mg x 3 weeks then decrease to 40mg - Recommend diabetic education - Maintain euglycemia (140-180s) - Patient can follow up with neurology as outpatient. Patient is OK for discharge as per neurology. Thank you for this consultation. Case seen, discussed and reviewed with attending, Dr. Eric Angulo PGY2 <Tc Reyes - Last Filed: 04/09/17 11:17> Objective - Vital Signs/Intake and Output Vital Signs (last 24 hours): Temp Pulse Resp BP Pulse Ox 98.5 F 73 20 128/82 99 04/09/17 05:57 04/09/17 05:57 04/09/17 05:57 04/09/17 05:57 04/09/17 05:57 Intake and Output: 04/09/17 04/09/17 06:59 18:59 Intake Total 120 Balance 120 - Medications Medications: Current Medications Aspirin (Aspirin Chewable) 81 mg PO DAILY [facility] Last Admin: 04/09/17 09:41 Dose: 81 mg Atorvastatin Calcium (Lipitor) 80 mg PO DIN [facility] Heparin Sodium (Porcine) (Heparin) 5,000 units SC Q12 [facility] PRN Reason: Protocol Last Admin: 04/09/17 09:41 Dose: 5,000 units Insulin Human Regular (Humulin R Med) 0 units SC ACHS [facility] PRN Reason: Protocol Last Admin: 04/09/17 08:20 Dose: 1 units Pantoprazole Sodium (Protonix Ec Tab) 40 mg PO 0600 [facility] Last Admin: 04/09/17 05:27 Dose: 40 mg - Labs Labs: 04/09/17 05:30 04/09/17 05:30 PT 11.1 Seconds (9.9-11.8) 04/08/17 06:58 INR 1.03 (0.93-1.08) 04/08/17 06:58 APTT 26.9 Seconds (23.7-30.8) 04/08/17 06:58 Attending/Attestation - Attestation I have personally seen and examined this patient.: Yes I have fully participated in the care of the patient.: Yes I have reviewed all pertinent clinical information, including history, physical exam and plan: Yes
[2017-04-09 11:51] VITALS: BP 130/86; TEMP 98.4
--- NOTE | 2017-04-09 12:43 | CP.PCM.DIS ---
<AbebeDebbyn - Last Filed: 04/09/17 13:49> Provider - Provider Date of Admission: 04/08/17 08:34 Attending physician: Lexus Sorensen MD Primary care physician: Pina Arvizu MD Time Spent in preparation of Discharge (in minutes): 45 Hospital Course - Lab Results Lab Results: Most Recent Lab Values WBC 6.5 10^3/ul (4.5-11.0) 04/09/17 05:30 RBC 4.66 10^6/uL (3.5-6.1) 04/09/17 05:30 Hgb 12.6 g/dL (14.0-18.0) L 04/09/17 05:30 Hct 39.4 % (42.0-52.0) L 04/09/17 05:30 MCV 84.5 fl (80.0-105.0) 04/09/17 05:30 MCH 27.0 pg (25.0-35.0) 04/09/17 05:30 MCHC 32.0 g/dl (31.0-37.0) 04/09/17 05:30 RDW 13.4 % (11.5-14.5) 04/09/17 05:30 Plt Count 178 10^3/uL (120.0-450.0) 04/09/17 05:30 MPV 13.7 fl (7.0-11.0) H 04/09/17 05:30 Gran % 51.3 % (50.0-68.0) 04/09/17 05:30 Lymph % (Auto) 36.8 % (22.0-35.0) H 04/09/17 05:30 Prowers % (Auto) 7.1 % (1.0-6.0) H 04/09/17 05:30 Eos % (Auto) 4.5 % (1.5-5.0) 04/09/17 05:30 Baso % (Auto) 0.3 % (0.0-3.0) 04/09/17 05:30 Gran # 3.31 (1.4-6.5) 04/09/17 05:30 Lymph # 2.4 (1.2-3.4) 04/09/17 05:30 Prowers # 0.5 (0.1-0.6) 04/09/17 05:30 Eos # 0.3 (0.0-0.7) 04/09/17 05:30 Baso # 0.02 K/mm3 (0.0-2.0) 04/09/17 05:30 PT 11.1 Seconds (9.9-11.8) 04/08/17 06:58 INR 1.03 (0.93-1.08) 04/08/17 06:58 APTT 26.9 Seconds (23.7-30.8) 04/08/17 06:58 Sodium 140 mmol/L (132-148) 04/09/17 05:30 Potassium 3.9 mmol/L (3.6-5.0) 04/09/17 05:30 Chloride 103 mmol/L (98-107) 04/09/17 05:30 Carbon Dioxide 25 mmol/L (21-33) 04/09/17 05:30 Anion Gap 16 (10-20) 04/09/17 05:30 BUN 14 mg/dL (7-21) 04/09/17 05:30 Creatinine 0.8 mg/dL (0.8-1.5) 04/09/17 05:30 Est GFR ( Amer) > 60 04/09/17 05:30 Est GFR (Non-Af Amer) > 60 04/09/17 05:30 POC Glucose (mg/dL) 157 mg/dL (65-110) H 04/09/17 11:08 Random Glucose 174 mg/dL (70-110) H 04/09/17 05:30 Hemoglobin A1c 8.9 % (4.2-6.5) H 04/08/17 09:05 Calcium 9.1 mg/dL (8.4-10.5) 04/09/17 05:30 Total Bilirubin 0.4 mg/dL (0.2-1.3) 04/09/17 05:30 AST 59 U/L (17-59) 04/09/17 05:30 ALT 69 U/L (7-56) H 04/09/17 05:30 Alkaline Phosphatase 74 U/L (38-126) 04/09/17 05:30 Total Protein 6.9 g/dL (5.8-8.3) 04/09/17 05:30 Albumin 4.0 g/dL (3.0-4.8) 04/09/17 05:30 Globulin 2.9 gm/dL 04/09/17 05:30 Albumin/Globulin Ratio 1.4 (1.1-1.8) 04/09/17 05:30 Triglycerides 201 mg/dL (35-160) H 04/08/17 08:36 Cholesterol 208 mg/dL (130-200) H 04/08/17 08:36 LDL Cholesterol Direct 163 mg/dL (0-129) H 04/08/17 08:36 HDL Cholesterol 34 mg/dL (29-60) 04/08/17 08:36 - Hospital Course Hospital Course: This is a 56 year old male with PMH of HTN, DM, and HLD presents to the hospital for 12 hour hx of right sided numbness and weakness. Pt states he was watching tv at home with his family when he noticed a funny sensation on his right side. Pt went to sleep and awoke in the middle of the night, noticing his symptoms were worse. At this time, he informed his son and came to the hospital. In the ED, he noticed improvement of symptoms. Pt did not take any medications at home for his symptoms. Pt states there are no aggravating or alleviating factors. Pt states he has been compliant with his medications at home. Denies CP, SOB, N/V/D, blurry vision, dysuria, easy bleeding or bruising. While admitted to the hospital the patient was seen by Neurology. The patient also had a brain CT scan which showed no definite territorial infarction and incidental/non acute findings. The patient also had a carotid duplex done which showed 20-39% stenosis of the ica and anterograde blow in both arteries. 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 The patient was then seen by Neurology who recommended aspirin, lipitor and physical therapy for further management. The patient was also strongly advised to control underlying diabetes and hyperlipidemia. The patient was discharged today on aspirin and lipitor and strongly advised to follow up with PMD within one week of discharge. Discharge Exam - Head Exam Head Exam: ATRAUMATIC, NORMAL INSPECTION, NORMOCEPHALIC - Eye Exam Eye Exam: EOMI, PERRL. absent: Conjunctival injection, Periorbital tenderness Pupil Exam: NORMAL ACCOMODATION, PERRL. absent: Irregular, Unequal - ENT Exam ENT Exam: Mucous Membranes Moist, Normal Oropharynx. absent: Normal Exam, TM's Normal Bilaterally - Respiratory Exam Respiratory Exam: Clear to PA & Lateral, NORMAL BREATHING PATTERN, UNREMARKABLE. absent: Decreased Breath Sounds, Prolonged Expiratory Phase, Rales - Cardiovascular Exam Cardiovascular Exam: REGULAR RHYTHM, RRR, +S1, +S2. absent: Gallop, Rubs - GI/Abdominal Exam GI & Abdominal Exam: Normal Bowel Sounds, Unremarkable. absent: Diminished Bowel Sounds, Hypoactive Bowel Sounds, Organomegaly - Neurological Exam Neurological exam: Alert, CN II-XII Intact, Normal Gait, Oriented x3, Reflexes Normal - Psychiatric Exam Psychiatric exam: Normal Affect, Normal Mood - Skin Skin Exam: Dry, Intact Discharge Plan - Discharge Medications Prescriptions: Aspirin [Aspirin Chewable] 81 mg PO DAILY #14 chew Atorvastatin [Lipitor] 80 mg PO DIN #21 tab - Follow Up Plan Condition: STABLE Disposition: HOME/ ROUTINE Instructions: Transient Ischemic Attack (DC), Ischemic Stroke (DC) Additional Instructions: Follow up with PMD within 1 week. Continue Aspirin, Lipitor, and Diabetic regimen at home. Take Lipitor 80 mg daily for 3 weeks, then take Lipitor 40 mg daily Please follow up with your PMD for Lipitor 40 mg prescription If symptoms occur again, please return to hospital. Referrals: Pina Arvizu MD [Primary Care Provider] - <Lexus Sorensen - Last Filed: 04/09/17 14:40> Provider - Provider Date of Admission: 04/08/17 08:34 Attending physician: Lexus Sorensen MD Primary care physician: Pina Arvizu MD Hospital Course - Lab Results Lab Results: Most Recent Lab Values WBC 6.5 10^3/ul (4.5-11.0) 04/09/17 05:30 RBC 4.66 10^6/uL (3.5-6.1) 04/09/17 05:30 Hgb 12.6 g/dL (14.0-18.0) L 04/09/17 05:30 Hct 39.4 % (42.0-52.0) L 04/09/17 05:30 MCV 84.5 fl (80.0-105.0) 04/09/17 05:30 MCH 27.0 pg (25.0-35.0) 04/09/17 05:30 MCHC 32.0 g/dl (31.0-37.0) 04/09/17 05:30 RDW 13.4 % (11.5-14.5) 04/09/17 05:30 Plt Count 178 10^3/uL (120.0-450.0) 04/09/17 05:30 MPV 13.7 fl (7.0-11.0) H 04/09/17 05:30 Gran % 51.3 % (50.0-68.0) 04/09/17 05:30 Lymph % (Auto) 36.8 % (22.0-35.0) H 04/09/17 05:30 Prowers % (Auto) 7.1 % (1.0-6.0) H 04/09/17 05:30 Eos % (Auto) 4.5 % (1.5-5.0) 04/09/17 05:30 Baso % (Auto) 0.3 % (0.0-3.0) 04/09/17 05:30 Gran # 3.31 (1.4-6.5) 04/09/17 05:30 Lymph # 2.4 (1.2-3.4) 04/09/17 05:30 Prowers # 0.5 (0.1-0.6) 04/09/17 05:30 Eos # 0.3 (0.0-0.7) 04/09/17 05:30 Baso # 0.02 K/mm3 (0.0-2.0) 04/09/17 05:30 PT 11.1 Seconds (9.9-11.8) 04/08/17 06:58 INR 1.03 (0.93-1.08) 04/08/17 06:58 APTT 26.9 Seconds (23.7-30.8) 04/08/17 06:58 Sodium 140 mmol/L (132-148) 04/09/17 05:30 Potassium 3.9 mmol/L (3.6-5.0) 04/09/17 05:30 Chloride 103 mmol/L (98-107) 04/09/17 05:30 Carbon Dioxide 25 mmol/L (21-33) 04/09/17 05:30 Anion Gap 16 (10-20) 04/09/17 05:30 BUN 14 mg/dL (7-21) 04/09/17 05:30 Creatinine 0.8 mg/dL (0.8-1.5) 04/09/17 05:30 Est GFR ( Amer) > 60 04/09/17 05:30 Est GFR (Non-Af Amer) > 60 04/09/17 05:30 POC Glucose (mg/dL) 157 mg/dL (65-110) H 04/09/17 11:08 Random Glucose 174 mg/dL (70-110) H 04/09/17 05:30 Hemoglobin A1c 8.9 % (4.2-6.5) H 04/08/17 09:05 Calcium 9.1 mg/dL (8.4-10.5) 04/09/17 05:30 Total Bilirubin 0.4 mg/dL (0.2-1.3) 04/09/17 05:30 AST 59 U/L (17-59) 04/09/17 05:30 ALT 69 U/L (7-56) H 04/09/17 05:30 Alkaline Phosphatase 74 U/L (38-126) 04/09/17 05:30 Total Protein 6.9 g/dL (5.8-8.3) 04/09/17 05:30 Albumin 4.0 g/dL (3.0-4.8) 04/09/17 05:30 Globulin 2.9 gm/dL 04/09/17 05:30 Albumin/Globulin Ratio 1.4 (1.1-1.8) 04/09/17 05:30 Triglycerides 201 mg/dL (35-160) H 04/08/17 08:36 Cholesterol 208 mg/dL (130-200) H 04/08/17 08:36 LDL Cholesterol Direct 163 mg/dL (0-129) H 04/08/17 08:36 HDL Cholesterol 34 mg/dL (29-60) 04/08/17 08:36 Attending/Attestation - Attestation I have personally seen and examined this patient.: Yes I have fully participated in the care of the patient.: Yes I have reviewed all pertinent clinical information, including history, physical exam and plan: Yes Notes (Text): 04/09/17 14:37 56 year old male with past medical history of hypertension, diabetes and dyslipidemia who presented with right sided weakness. CT head was negative for acute findings, however, MRI brain showed acute infarct in the left posterior jorgensen radiata. He was on aspirin and statin. He was seen by neurology and physical therapy. His symptoms improved. Patient is discharged home to follow up with his pmd. Continue with aspirin and statin 80 mg x 3 followed by 40 mg daily as per neurology. Monitor LFTs closely with pmd while on statin. Counselled on alcohol abstinence. Lexus Sorensen MD Hospitalist.
[2017-04-09 14:05] VITALS: PULSE 86
== END 2017-04-09 15:58 | disposition home or self-care (01) | DRG 14 ==
LOC: ED 05:35 → ERH 08:34 → 2RNO 16:46
PROVIDERS: ADMIT Internal Medicine; ATTEND Internal Medicine
DX: I63.9 Cerebral infarction, unspecified (principal); I10 Essential (primary) hypertension; E11.9 Type 2 diabetes mellitus without complications; E78.5 Hyperlipidemia, unspecified; K21.9 Gastro-esophageal reflux disease without esophagitis; Z79.899 Other long term (current) drug therapy; Z87.891 Personal history of nicotine dependence